=== PATIENT | female | born 1995 | race Two or more races ===

== ENCOUNTER 2020-03-19 14:01 | Emergency (ER) | payer MEDICAID ==
[~2020-03-19] VITALS: Ht 160 cm; Wt 74.0 kg
[~2020-03-19 14:01] MED LIST: HYDR-3240 PO
[2020-03-19 14:46] LABS: BASOPHILS # (AUTO) 0.04 x10^3/uL (0-0.1); BASOPHILS % (AUTO) 0 % (0-1); EOSINOPHILS % (AUTO) 1 % (1-7); LYMPHOCYTES # (AUTO) 1.96 x10^3/uL (1-3.4); LYMPHOCYTES % (AUTO) 23 % (22-44); MD NO; MEAN CORPUSCULAR HEMOGLOBIN 28.9 pg (27.0-34.8); MEAN CORPUSCULAR HGB CONC 32.8 g/dL (32.4-35.8); MEAN PLATELET VOLUME 8.5 fL (7.4-10.4); MONOCYTES # (AUTO) 0.57 x10^3/uL (0.2-0.8); MONOCYTES % (AUTO) 7 % (2-9); NEUTROPHILS # (AUTO) 5.98 x10^3/uL (1.8-6.8); NEUTROPHILS % (AUTO) 69 % (42-75); PLATELET COUNT 347 x10^3/uL (130-400); RED BLOOD COUNT 4.82 x10^6/uL (3.82-5.3); RED CELL DISTRIBUTION WIDTH 13.5 % (9.6-15.2)
--- NOTE | 2020-03-19 14:56 | NUR ---
OPERATIONS SUPPORT ANALYST: PT CURRENTLY IN US. TO GO TO ROOM UPON COMPLETION OF TEST
--- NOTE | 2020-03-19 15:12 | NUR ---
SAP FUNCTIONAL ANALYST: PT TO ROOM FROM U/S
--- NOTE | 2020-03-19 15:20 | NUR ---
THIS IS A 24 YO FEMALE COMING IN FOR RECURRING VAGINAL BLEEDING AFTER MISCARRIAGE 2 WEEKS AGO. PATIENT IS , WAS APPROX 4-5 WEEKS GESTATIONAL AGE WHEN MISCARRIED. PATIENT STATES THERE WAS SOME PINK SPOTTING LAST WEEK THEN IT RESIDED. TODAY IT BECAME BRIGHT RED WITH CLOTS AND SATURATING 3-4 PADS TODAY. C/O LLQ AND "BURNING/CRAMPING" SENSATION. DENIES DIZZINESS OR LIGHTHEADED, DENIES PAIN WITH URINATION. US COMPLETED. MONITORING IN PLACE, VSS, NADN AT THIS TIME. CALL LIGHT IN REACH
--- NOTE | 2020-03-19 15:28 | NUR ---
ER PA IN ROOM FOR EVAL
--- NOTE | 2020-03-19 16:00 | NUR ---
STRAIGHT CATH PERFORMED FOR STERILE UA. WALKED TO LAB
[2020-03-19 16:10] LABS: MICROSCOPIC AUTO
--- NOTE | 2020-03-19 16:58 | NUR ---
PELVIC EXAM COMPLETED
[2020-03-19 17:12] VITALS: BP 108/72
--- NOTE | 2020-03-19 17:45 | NUR ---
ERP IN ROOM FOR RECHECK
--- NOTE | 2020-03-19 18:16 | NUR ---
Patient given discharge instructions and they have confirmed that they understand the instructions. Patient ambulatory with steady gait.
== END 2020-03-19 18:17 | disposition home or self-care (01) ==
LOC: ED 17:21
DX: N93.9 Abnormal uterine and vaginal bleeding, unspecified (principal); R10.2 Pelvic and perineal pain
CPT/HCPCS: 36415; 76801; 81001; 84702; 85025; 86901; 99284